=== PATIENT | male | born 1940 | race Caucasian/White ===

== ENCOUNTER 2018-02-13 14:51 | Emergency (ER) | payer OTHER ==
[~2018-02-13] VITALS: Ht 175.3 cm; Wt 109.5 kg
[~2018-02-13 14:51] MED LIST: APIX5 PO; ATOR80TA PO; FURO1TAB93 PO; GLUC10TA3 PO; GLUCTAB PO; LEVO750T33 PO; MAGN400 PO; METF500 PO; METH750T2 PO; METO50TA PO; MULT1TAB39 PO; OMEG5CAP PO; OMEP20TA39 PO; POTA20PA PO; TAMS0.4C4 PO; VITA20003 PO
[2018-02-13 14:53] VITALS: BP 157/78; PULSE 86; RESP 22; TEMP 97.8; O2SAT 96
[2018-02-13] MEDS ORDERED: ORPHENADRINE INJ 60 MG/2 ML AMP IM ONE (15:15)
[2018-02-13] MEDS ORDERED: ACETAMINOPHEN 325 MG TAB PO ONE (15:15)
--- NOTE | 2018-02-13 15:22 | PD ---
HPI Chief Complaint: Musculoskeletal Complaint Time Seen by Provider: 15:03 Travel History International Travel<30 days: No Contact w/Intl Traveler<30days: No Traveled to known affect area: No History of Present Illness HPI 77-year-old male presents to emergency department with complaint of lower neck pain/upper back/shoulder pain that he woke up with 2 mornings ago. He said he just flew back from [place] and woke up the next morning with the pain. Denies injury, strain, heavy lifting. Says the pain is getting worse. He also reports having a cough for the past couple days that has been bothersome. Denies nasal congestion, ear pain, sore throat. He denies chest pain. Reports shortness of breath that has been ongoing and unchanged. He has seen a assistant corporate secretary for this in the past. Rates pain 10/10. Worse with movement. Better at rest. Says he has no pain at rest. Has not taken any medications or trying treatments to alleviate his symptoms. Rates pain 10/10. Primary CARE providers Dr. Garner. No known allergies. History of diabetes, heart attack. Is on warfarin. Has no other medical complaints. No other modifying factors or associated signs and symptoms. PFSH Past Medical History Hx Anticoagulant Therapy: Yes Asthma: No Atrial Fibrillation: Yes Blood Disorders: No Anxiety: No Depression: No Heart Rhythm Problems: Yes (A FIB) Cancer: No Cardiovascular Problems: Yes High Cholesterol: Yes Chemotherapy: No Chest Pain: Yes Congestive Heart Failure: Yes COPD: No Diabetes: Yes Patient Takes Glucophage: Yes Diminished Hearing: Yes (IQUGMIUT BILATERALLY) Endocrine: Yes Gastrointestinal Disorders: Yes (ULCER, GERD) GERD: Yes Genitourinary: Yes (KIDNEY STONES) Hypertension: Yes Immune Disorder: No Kidney Stones: Yes Neurologic: No Psychiatric: No Reproductive: No Respiratory: Yes (SOB) Migraines: Yes Radiation Therapy: No Sleep Apnea: No Thyroid Disease: No Triglycerides - High: Yes Tetanus Vaccination: > 5 Years Influenza Vaccination: Yes Past Surgical History Appendectomy: Yes Cardiac Surgery: Yes (AORTIC VALVE REPLACED) Coronary Artery Bypass Graft: Yes Other Surgery: Yes (APPY, AORTIV VALVE REPLACE, CABG, FOOT SURGERY) Social History Alcohol Use: Yes (RARELY) Tobacco Use: Yes (QUIT 2005, AFTER 40 YEARS) Substance Use: No Allergies-Medications (Allergen,Severity, Reaction): Coded Allergies: No Known Allergies (Verified Adverse Reaction, Unknown, 6/9/18) Reported Meds & Prescriptions Reported Meds & Active Scripts Active Tramadol (Tramadol HCl) 50 Mg Tab 50 Mg PO Q4H PRN Robaxin (Methocarbamol) 500 Mg Tab 500 Mg PO QID PRN Review of Systems Except as stated in HPI: all other systems reviewed are Neg Physical Exam Narrative GENERAL: Well-nourished, well-developed elderly, male patient, in no acute distress; afebrile, nontoxic-appearing SKIN: Warm and dry. HEAD: Atraumatic. Normocephalic. EYES: Pupils equal and round. No scleral icterus. No injection or drainage. ENT: Mucosa pink and moist. Airway patent. NECK: Moving freely. Trachea midline. No lymphadenopathy. Active rotation of the neck greater than 45 left and right. No midline point tenderness on palpation of the cervical spine. Reproducible tenderness to the base of bilateral trapezius muscles of the neck/upper back area. No obvious deformities. CARDIOVASCULAR: Regular rate and rhythm. No murmur appreciated. RESPIRATORY: No accessory muscle use. Clear to auscultation. Breath sounds equal bilaterally. GASTROINTESTINAL: Rounded. MUSCULOSKELETAL: No obvious deformities. No clubbing. No cyanosis. No edema. Normal gait. BACK: No point tenderness on palpation of thoracic spine. No obvious deformities. NEUROLOGICAL: Awake and alert. Oriented 3. No obvious cranial nerve deficits. Motor grossly within normal limits. Normal speech. Moves all extremities. 5/5 strength to all extremities. Sensory intact. PSYCHIATRIC: Appropriate mood and affect; insight and judgment normal. Data Data Last Documented VS Vital Signs Date Time Temp Pulse Resp B/P (MAP) Pulse Ox O2 Delivery O2 Flow Rate FiO2 02/13/18 14:53 97.8 86 22 157/78 (104) 96 Orders Orders Chest, Single Ap (02/13/18 15:13) Orphenadrine Inj (Norflex Inj) (02/13/18 15:15) Acetaminophen (Tylenol) (02/13/18 15:15) Ed Discharge Order (02/13/18 15:55) [facility] Medical Decision Making Medical Screen Exam Complete: Yes Emergency Medical Condition: Yes Medical Record Reviewed: Yes Differential Diagnosis Muscle spasm, muscle strain, pneumonia Narrative Course 77-year-old male physical exam and HPI consistent with trapezius muscle spasms. Norflex, Tylenol ordered. patient reports he has had cough for the past couple days so I did a chest x-ray to rule out any acute findings in the chest x -ray concluded: Chest X-Ray 02/13/18 1513 Signed Impressions: CONCLUSION: 1. Chronic interstitial prominence in the medial one third of both lungs could represent interstitial pulmonary edema. 2. Stable cardiomegaly. Patient provided a copy of the x-ray report. Patient reports minimal improvement in his symptoms after the Tylenol Norflex. When I discussed discharge the patient requested to see the doctor. I did discuss the patient with Dr. Schmidt and she evaluated the patient and agrees with my treatment plan , plan of care, and disposition. Tramadol and Robaxin prescribed for home. Instructed patient to follow up with primary care provider. Patient verbalizes understanding and agreement with treatment plan. Patient is medically cleared and stable for discharge. Discussed reasons to return to the emergency department. Patient agrees with treatment plan. The patients vital signs are stable and the patient is stable for outpatient follow-up and treatment. Patient discharged home, stable and in no acute distress. Diagnosis Primary Impression: Trapezius muscle spasm Referrals: Primary Care Physician Patient Instructions: General Instructions, Muscle Spasm (ED) Additional Instructions: Tylenol as directed and as needed for pain Robaxin as prescribed and as needed for muscle spasms Heating pad and/or ice to affected area to reduce pain Avoid aggravating activities; increase activity as tolerated Follow-up with primary care provider Return to emergency department immediately with worsening of symptoms Med/Other Pt SpecificInfo: Prescription(s) given Scripts Tramadol (Tramadol) 50 Mg Tab 50 MG PO Q4H Y for PAIN, #12 TAB 0 Refills Prov: Migdalia Holliday 02/13/18 Methocarbamol (Robaxin) 500 Mg Tab 500 MG PO QID Y for MUSCLE SPASM, #30 TAB 0 Refills Prov: Migdalia Holliday 02/13/18 Disposition: 01 DISCHARGE HOME Condition: Stable Migdalia Holliday Feb 13, 2018 15:22
--- NOTE | 2018-02-13 15:33 | RADRPT ---
EXAM DATE: 02/13/2018 3:30 PM EDT AGE/SEX: 77 years / Male INDICATIONS: Congestion. Cough. Neck pain. CLINICAL DATA: This is the patient's initial encounter. Patient reports that signs and symptoms have been present for 3 days and indicates a pain score of 4/10. MEDICAL/SURGICAL HISTORY: None. None. COMPARISON: [facility] – [place], 06/28/2015. . FINDINGS: There is a lesser degree of inspiration on the prior examination in 2014 with associated crowding of the bronchopulmonary markings. There are chronic interstitial infiltrates in the medial one third of both lungs and chronic thickening of the right minor fissure. Both hemidiaphragms are well delineated . Evidence of prior median sternotomy and CABG. The heart is enlarged, stable in size from prior. CONCLUSION: 1. Chronic interstitial prominence in the medial one third of both lungs could represent interstitia l pulmonary edema. 2. Stable cardiomegaly. Electronically signed by: Gerard Soriano MD 02/13/2018 3:32 PM EDT
[2018-02-13] MEDS ORDERED: ROBA500T PO (15:55)
[2018-02-13] MEDS ORDERED: TRAM50TA PO (15:55)
--- NOTE | 2018-02-13 15:57 | PD ---
Physical Exam Date Seen by Provider: Feb 13, 2018 Narrative This patient requested to see me prior to discharge. He presents complaining with left neck pain which started a couple of days ago. It is atraumatic. The pain has been getting progressively worse. The pain is exacerbated by movement. He reports no relieving factors. He rates the pain 10/10. He was given a Norflex injection with no relief of his pain. He is concerned that he presented here and pain and that he is being discharged in pain. Data Data Last Documented VS Vital Signs Date Time Temp Pulse Resp B/P (MAP) Pulse Ox O2 Delivery O2 Flow Rate FiO2 02/13/18 14:53 97.8 86 22 157/78 (104) 96 Orders Orders Chest, Single Ap (02/13/18 15:13) Orphenadrine Inj (Norflex Inj) (02/13/18 15:15) Acetaminophen (Tylenol) (02/13/18 15:15) MDM Supervised Visit with LUIGI: Yes Narrative Course I, Dr. Schmidt, have reviewed the advance practice practitioner's documentation and am in agreement, met with the patient face to face, made the diagnosis, and the medical decision making was done by me. *My assessment and Findings: Tender in the left trapezius muscle. No tenderness of the C-spine. Please see Migdalia Holliday NP's note for results of laboratory and radiographic evaluation, ED course, final diagnosis and disposition. I agree with her diagnosis and disposition. The patient is being discharged home with prescriptions for tramadol and Robaxin. He will be instructed to use heat. Scripts Tramadol (Tramadol) 50 Mg Tab 50 MG PO Q4H Y for PAIN, #12 TAB 0 Refills Prov: Migdalia Holliday 02/13/18 Methocarbamol (Robaxin) 500 Mg Tab 500 MG PO QID Y for MUSCLE SPASM, #30 TAB 0 Refills Prov: Migdalia Holliday 02/13/18 Aby Schmidt MD Feb 13, 2018 15:57
== END 2018-02-13 16:01 | disposition home or self-care (01) ==
LOC: PHEFT 14:51
DX: M62.830 Muscle spasm of back (principal); M25.519 Pain in unspecified shoulder; M54.2 Cervicalgia; R05 Cough; R06.02 Shortness of breath; E11.9 Type 2 diabetes mellitus without complications; I25.2 Old myocardial infarction; I48.91 Unspecified atrial fibrillation; E78.00 Pure hypercholesterolemia, unspecified; I11.0 Hypertensive heart disease with heart failure; I50.9 Heart failure, unspecified; K21.9 Gastro-esophageal reflux disease without esophagitis; Z87.891 Personal history of nicotine dependence; Z95.1 Presence of aortocoronary bypass graft; Z95.2 Presence of prosthetic heart valve; Z87.442 Personal history of urinary calculi
CPT/HCPCS: 71045; 96372; 99283; J2360